=== PATIENT | female | born 1990 | race Caucasian/White ===

== ENCOUNTER → 2018-06-14 | Outpatient (CLI) | payer OTHER | LOC: BMCIMAGING 11:02 | DX: N63.23 Unspecified lump in the left breast, lower outer quadrant (principal) ==

== ENCOUNTER → 2018-09-19 | Outpatient (CLI) | payer OTHER | LOC: BMCIMAGING 11:49 | PROVIDERS: ATTEND Advanced Practice Midwife | DX: N63.20 Unspecified lump in the left breast, unspecified quadrant (principal) ==